=== PATIENT | female | born 1995 | race Two or more races ===

== ENCOUNTER 2018-10-11 22:44 | Emergency (ER) | payer MEDICAID ==
[~2018-10-11] VITALS: Ht 172.7 cm; Wt 82.0 kg
[2018-10-12] MEDS ORDERED: ONDANSETRON HCL 4MG/2ML INJ IV STA (01:39)
[2018-10-12] MEDS ORDERED: CEFTRIAXONE 1 G PREMIX 50 ML IV ONE (01:45)
[2018-10-12] MEDS ORDERED: VANCOMYCIN 1 G PREMIX 200 ML IV ONE (01:45)
[2018-10-12] MEDS ORDERED: MORPHINE SULFATE 4 MG/ML CPJ (NOT FOR IM USE) IV ONE (01:45)
[2018-10-12 02:03] LABS: BASOPHILS % 0.7 % (0.0-2.0); EOSINOPHILS % 1.7 % (0.0-5.0); HEMATOCRIT. 41.9 % (36.0-48.0); HEMOGLOBIN. 14.3 g/dL (12.0-16.0); LYMPHOCYTES % 40.1 % (20.0-50.0); MEAN CORPUSCULAR HEMOGLOBIN 30.2 pg (28.0-32.0); MEAN CORPUSCULAR VOLUME 88.3 fL (81.0-99.0); MEAN PLATELET VOLUME 7.3 fl (7.4-10.4); NEUTROPHILS % 49.5 % (40.0-76.0); PLATELET 322 x1000/uL (130-400); RED BLOOD CELL COUNT 4.75 mill/uL (4.2-5.4); RED CELL DISTRIBUTION WIDTH 12.9 % (11.6-14.6)
[2018-10-12 02:10] LABS: CHLORIDE 104 mEq/L (98-107)
[2018-10-12 02:11] LABS: PROTHROMBIN TIME 10.2 sec (9.6-11.0)
[2018-10-12 02:15] LABS: CLARITY URINE CLEAR (CLEAR); COLOR URINE YELLOW (YELLOW); KETONES URINE NEGATIVE (NEGATIVE); LEUKOCYTE ESTERASE URINE 1+ (NEGATIVE); NITRITE URINE NEGATIVE (NEGATIVE); OCCULT BLOOD URINE NEGATIVE (NEGATIVE); PROTEIN URINE NEGATIVE (NEGATIVE); SPECIFIC GRAVITY URINE 1.006 (1.005-1.030); UROBILINOGEN URINE 0.2 E.U./dL (0.2-1.0)
[2018-10-12] MEDS ORDERED: SODIUM CHLORIDE 0.9% 500 ML IV ONE (04:30)
[2018-10-12] MEDS ORDERED: DIPHENHYDRAMINE 50MG/ML VIAL IV ONE (04:30)
[2018-10-12 05:14] VITALS: BP 104/58
== END 2018-10-12 05:19 | disposition home or self-care (01) ==
LOC: ER 22:44 → CANBEDREQ 10-12 05:36
DX: N61.0 Mastitis without abscess (principal); R05 Cough
CPT/HCPCS: 36415; 71045; 76641; 80053; 81003; 81025; 83605; 84145; 85025; 85610; 87040; 96365; 96367; 96375; 99284; J0696; J1200; J2270; J2405; J3370; J7040; Z7610

== ENCOUNTER 2018-10-18 05:29 | Emergency (ER) | payer MEDICAID ==
[~2018-10-18] VITALS: Ht 172.7 cm; Wt 82.0 kg
[2018-10-18] MEDS ORDERED: HYDROCODONE/ACETAMINOPHEN 5/325MG TABLET PO ONE (07:00)
[2018-10-18] MEDS ORDERED: AMOXICILLIN/POTASSIUM CLAVULANATE 875/125MG TAB PO ONE (07:00)
[2018-10-18 09:15] VITALS: BP 122/68
== END 2018-10-18 09:30 | disposition home or self-care (01) ==
LOC: ER 07:23
DX: N61.0 Mastitis without abscess (principal)
CPT/HCPCS: 99283

== ENCOUNTER 2018-11-13 10:39 | Emergency (ER) | payer MEDICAID ==
[~2018-11-13] VITALS: Ht 172.7 cm; Wt 82.0 kg
[2018-11-13] MEDS ORDERED: IBUPROFEN 800MG TABLET PO ONE (13:00)
[2018-11-13 13:08] VITALS: BP 119/60
== END 2018-11-13 14:31 | disposition home or self-care (01) ==
LOC: ER 10:39
DX: N64.4 Mastodynia (principal); R50.9 Fever, unspecified; R11.0 Nausea; R42 Dizziness and giddiness
CPT/HCPCS: 76641; 81025; 99284

== ENCOUNTER 2018-12-11 19:33 | Emergency (ER) | payer MEDICAID ==
[~2018-12-11] VITALS: Ht 172.7 cm; Wt 81.0 kg
[2018-12-11] MEDS ORDERED: HYDROCODONE/ACETAMINOPHEN 5/325MG TABLET PO ONE (20:45)
[2018-12-11 20:58] VITALS: BP 105/69
== END 2018-12-11 20:59 | disposition home or self-care (01) ==
LOC: ER 19:33
DX: N61.1 Abscess of the breast and nipple (principal)
CPT/HCPCS: 99283